=== PATIENT | male | born 1970 | race Caucasian/White ===

== ENCOUNTER 2020-06-26 00:28 | Outpatient (CLI) | payer OTHER, SELFPAY ==
[2020-06-26 18:58] LABS: SARS-CoV-2 RNA PCR Negative
== END 2020-06-26 00:29 | disposition home or self-care (01) ==
LOC: ANHCOVIDDT 00:28
PROVIDERS: PCP Family Medicine; Visit Provider Internal Medicine Gastroenterology
DX: Z01.812 Encounter for preprocedural laboratory examination (principal); Z20.828 Contact with and (suspected) exposure to other viral communicable diseases
CPT/HCPCS: 87635; C9803; U0003

== ENCOUNTER → 2020-06-29 08:04 | Day surgery (SDC) | payer OTHER, SELFPAY ==
[2020-06-23 11:00] VITALS: BMI 40.2
--- NOTE | 2020-06-28 09:49 | WPDANESEPPF ---
Anes - Initial Pre Proc Eval Procedure: Operation Date: 06/29/20 09:30 Proposed Procedures p Esophagogastroduodenoscopy & Screening Colonoscopy - Donnell Melgar MD Date/Time: 06/28/20 09:49 Surgeon: Donnell Melgar MD Pre Op Diagnosis: GERD, neoplasm screening Patient Data Age: 49 Gender: M Height: 1.93 m Weight: 150 kg Allergies Allergy/AdvReac Type Severity Reaction Status Date / Time No Known Allergies Allergy Verified 06/29/20 08:26 Home Medications Medication Instructions Recorded Confirmed Type cholecalciferol (vitamin D3) 50 50 mcg PO DAILY 07/28/19 06/23/20 History mcg (2,000 unit) capsule atorvastatin 10 mg tablet 10 mg PO DAILY #90 tablet 02/18/20 06/23/20 Rx cyclobenzaprine 10 mg tablet See Rx Instructions .ROUTE 05/12/20 06/23/20 Rx .COMPLEX #90 tablet omeprazole 20 mg capsule,delayed 20 mg PO DAILY #30 cap 06/29/20 Rx release diclofenac sodium 75 mg See Rx Instructions .ROUTE 06/30/20 Rx tablet,delayed release .COMPLEX #180 tablet lisinopril 10 mg tablet See Rx Instructions .ROUTE 07/05/20 Rx .COMPLEX #30 tablet tramadol 50 mg tablet 50 mg PO BID #60 tablet 07/05/20 Rx Patient hx anesthesia problems: none Family hx anesthesia problems: none PMFSH Past Medical History Medical History (Updated 04/19/20 @ 13:10 by Stacey Cottrell MD) Anxiety Benign prostatic disease Depression Encounter for screening colonoscopy Essential (primary) hypertension GERD (gastroesophageal reflux disease) History of hypertrophy of breast Hyperlipidemia Hyperlipidemia LDL goal <100 Hypertension Low back pain without sciatica Morbid obesity with BMI of 40.0-44.9, adult Unspecified osteoarthritis, unspecified site Vitamin D deficiency Surgical History Surgical History No pertinent past surgical history Family History Family History Other Family history of arthritis Family history of elevated blood lipids Hypertension Social History Social History Smoking packs per day: 1.5 Smoking cigarettes per day: 30.0 Years smoked: 15 Smoking pack-years: 22.50 Smoking status: Former smoker Tobacco type: cigarettes Second hand tobacco smoke exposure: No Smoking end date: 07/09/03 Alcohol intake: never Substance use: never Substance use type: does not use Spiritual care concerns: No Anes - Eval Final PreProcedure Day of Procedure 06/28/20 09:49 Patient weight: morbidly obese Heart: regular rate and rhythm Lungs: clear to auscultation and normal air movement Airway: Mallampati scale class II Neurological: alert and oriented Last oral intake: >/= 8 hours ASA classification: III Emergent: no Anesthetic plan: proceed Anesthesia type and monitoring: general GIVS and standard monitoring Informed Consent: The patient's anesthetic plan and its attendant risks and benefits were discussed with the patient/family/POA. Questions were solicited and answers provided to the satisfaction of the patient/family/POA.
[2020-06-29 08:28] VITALS: BP 147/96; PULSE 93; RESP 20; TEMP 36.5; O2SAT 96; BMI 42.5
[2020-06-29] MEDS: LACTATED RINGERS 1,000 ML 150 ML IV CONT (08:38)
--- NOTE | 2020-06-29 09:25 | PM.HPGS ---
History of Present Illness History of Present Illness Consent: Risks, benefits, and alternatives have been discussed and questions answered. Patient agrees to proceed with procedure. Chief complaint: GERD, neoplasm screening Narrative: Ernesto Roe is a 49 year old male with gerd occasionally using tums, also needs screening colonoscopy Review of Systems Constitutional: Constitutional: Denies headache(s) and Denies weakness Eyes: Eyes: Denies blurry vision ENT: Reports Normal hearing present, Denies headache(s) and Denies neck pain Cardiovascular: Cardiovascular: Denies chest pain and Denies dyspnea Respiratory: Respiratory: Denies dyspnea Gastrointestinal: Gastrointestinal: Reports no additional gastrointestinal complaints Genitourinary: Genitourinary: Denies dysuria Musculoskeletal: Musculoskeletal: Denies neck pain Integumentary/Breasts: Skin/Breast: Denies dry skin Neurologic: Reports Normal hearing present, Denies headache(s) and Denies weakness Psychiatric: Psychiatric: Denies anxiety Endocrine: Endocrine: Denies change in body appearance Hematologic/Lymphatic: Hematologic/Lymphatic: Denies easy bleeding Allergic/Immunologic: Allergic/Immunologic: Denies urticaria PMFSH Past Medical History Medical History (Updated 04/19/20 @ 13:10 by Stacey Cottrell MD) Anxiety Benign prostatic disease Depression Encounter for screening colonoscopy Essential (primary) hypertension GERD (gastroesophageal reflux disease) History of hypertrophy of breast Hyperlipidemia Hyperlipidemia LDL goal <100 Hypertension Low back pain without sciatica Morbid obesity with BMI of 40.0-44.9, adult Unspecified osteoarthritis, unspecified site Vitamin D deficiency Surgical History Surgical History No pertinent past surgical history Family History Family History Other Family history of arthritis Family history of elevated blood lipids Hypertension Social History Social History Smoking packs per day: 1.5 Smoking cigarettes per day: 30.0 Years smoked: 15 Smoking pack-years: 22.50 Smoking status: Former smoker Tobacco type: cigarettes Second hand tobacco smoke exposure: No Smoking end date: 07/09/03 Alcohol intake: never Substance use: never Substance use type: does not use Living arrangements: with family Spiritual care concerns: No Meds Home Medications and Allergies Home Medications Medication Instructions Recorded Confirmed Type cholecalciferol (vitamin D3) 50 50 mcg PO DAILY 07/28/19 06/23/20 History mcg (2,000 unit) capsule diclofenac sodium 75 mg See Rx Instructions .ROUTE 01/05/20 06/23/20 Rx tablet,delayed release .COMPLEX #180 tablet atorvastatin 10 mg tablet 10 mg PO DAILY #90 tablet 02/18/20 06/23/20 Rx lisinopril 10 mg tablet See Rx Instructions .ROUTE 03/19/20 06/23/20 Rx .COMPLEX #90 tablet cyclobenzaprine 10 mg tablet See Rx Instructions .ROUTE 05/12/20 06/23/20 Rx .COMPLEX #90 tablet Allergies Allergy/AdvReac Type Severity Reaction Status Date / Time No Known Allergies Allergy Verified 06/29/20 08:26 Vital Signs Vital Signs - 24 hr 06/29/20 08:28 Temperature 97.7 F Pulse Rate 93 Respiratory Rate 20 Blood Pressure 147/96 H Pulse Oximetry 96 Exam Const: General: comfortable and no acute distress HENMT: General nose exam: Normal nares present Eyes: General: appearance normal, both eyes and all related structures Neck: Neck: no JVD Resp: Auscultation: clear to auscultation bilaterally Cardio: Rate: regular rate Rhythm: regular rhythm GI: Inspection: non-distended GI Palp: Yes Soft to palpation Skin: General skin exam: normal color Neuro: General: gait normal Speech: normal speech Extrem: General: normal to inspection Psych: Mental Status
[2020-06-29 09:56] VITALS: BP 144/97; PULSE 89; RESP 16; O2SAT 98
[2020-06-29 10:06] VITALS: BP 136/95; PULSE 85; RESP 18; O2SAT 96
[2020-06-29 10:16] VITALS: BP 124/90; PULSE 74; RESP 20; O2SAT 98
== END ==
PROVIDERS: PCP Family Medicine; Visit Provider Internal Medicine Gastroenterology
PROC: 0DJ08ZZ Inspection of Upper Intestinal Tract, Via Natural or Artificial Opening Endoscopic (ICD-10-PCS; CPT 43235; principal; 2020-06-29 09:30)
DX: Z12.11 Encounter for screening for malignant neoplasm of colon (principal); K21.00 Gastro-esophageal reflux disease with esophagitis, without bleeding; K29.70 Gastritis, unspecified, without bleeding; K57.30 Diverticulosis of large intestine without perforation or abscess without bleeding; K64.8 Other hemorrhoids; F41.9 Anxiety disorder, unspecified; F32.9 Major depressive disorder, single episode, unspecified; I10 Essential (primary) hypertension; E78.5 Hyperlipidemia, unspecified; M19.90 Unspecified osteoarthritis, unspecified site; E55.9 Vitamin D deficiency, unspecified; E66.01 Morbid (severe) obesity due to excess calories; Z68.41 Body mass index [BMI] 40.0-44.9, adult; Z87.891 Personal history of nicotine dependence; N40.1 Benign prostatic hyperplasia with lower urinary tract symptoms
CPT/HCPCS: 43239; 45378; 87635; 88305; C9803; J2704; J7120; U0003

== ENCOUNTER 2021-02-20 07:46 | Outpatient (CLI) | payer OTHER, SELFPAY ==
--- NOTE | ~2021-02-20 | MR_ITS ---
EXAMINATION: MR cervical spine wo con DATE: 02/20/2021 08:56 INDICATION: Neck pain. TECHNIQUE: Magnetic resonance imaging (MRI) of the cervical spine was performed without intravenous c ontrast. Sequences included sagittal T2-weighted FSE, sagittal STIR FSE, sagittal T1-weighted FSE, ax ial MERGE, and axial T2-weighted FSE. COMPARISON: None FINDINGS: There is hypolordosis of cervical spine. There is 2 mm retrolisthesis of C4 on C5. There is a chronic compression fracture of C7 with 2/5 loss of height centrally. There is severely decreased disc height at C3-C4 and moderately decreased disc height at C4-C5. The spinal cord signal intensity is normal. The following disc levels are specifically discussed: C2-C3: The disc does not extend beyond the endplate margin. There is mild left uncovertebral joint os teoarthritis. There is severe right facet joint osteoarthritis. There is no neural foraminal stenosis . There is no central canal stenosis. C3-C4: The disc is bulging. There is severe bilateral uncovertebral joint osteoarthritis. There is mi ld bilateral facet joint osteoarthritis. There is moderate bilateral neural foraminal stenosis. There is mild central canal stenosis. C4-C5: The disc is bulging. There is severe bilateral uncovertebral joint osteoarthritis. There is mi ld bilateral facet joint osteoarthritis. There is moderate bilateral neural foraminal stenosis. There is moderate central canal stenosis with ventral and dorsal indentation of the spinal cord. C5-C6: The disc does not extend beyond the endplate margin. There is moderate and mild left uncoverte bral joint osteoarthritis. There is mild bilateral facet joint osteoarthritis. There is mild bilatera l neural foraminal stenosis. There is no central canal stenosis. C6-C7: The disc does not extend beyond the endplate margin. There is mild right and moderate left unc overtebral joint osteoarthritis. There is mild bilateral facet joint osteoarthritis. There is mild bi lateral neural foraminal stenosis. There is mild central canal stenosis with ventral indentation of t he spinal cord. C7-T1: The disc does not extend beyond the endplate margin. There is no uncovertebral joint osteoarth ritis. There is mild bilateral facet joint osteoarthritis. There is mild bilateral neural foraminal s tenosis. There is no central canal stenosis. IMPRESSION: 1. Severe cervical spondylosis. Reviewed, dictated and finalized at location B.
--- NOTE | ~2021-02-20 | MR_ITS ---
EXAMINATION: MR lumbar spine wo con DATE: 02/20/2021 08:56 INDICATION: Low back pain. TECHNIQUE: Magnetic resonance imaging (MRI) of the lumbar spine was performed without intravenous con trast. Sequences included sagittal T2-weighted FSE, sagittal T2-weighted FS FSE, sagittal T1-weighted FSE, and axial T2-weighted FSE. COMPARISON: Lumbar spine radiographs 11/23/2010, chest 2 views 06/07/2011 FINDINGS: There is 6 degrees levocurvature of lumbar spine. There are 12 pairs of ribs. S1 is a trans itional segment. There is 3 mm retrolisthesis of L2 on L3 and 3 mm anterolisthesis of L5 on S1. There is mild chronic anterior wedging of T12 and L1 vertebral bodies. There are Schmorl's nodes at most l evels. There is mildly decreased disc height at L4-L5. The distal spinal cord signal intensity is nor mal. The conus medullaris is at L2. The following disc levels are specifically discussed: L1-L2: The disc does not extend beyond the endplate margin. There is mild bilateral facet joint osteo arthritis. There is no neural foraminal stenosis. There is no central canal stenosis. L2-L3: The disc does not extend beyond the endplate margin. There is moderate bilateral facet joint o steoarthritis. There is mild bilateral neural foraminal stenosis. There is no central canal stenosis. L3-L4: The disc does not extend beyond the endplate margin. There is severe right and moderate left f acet joint osteoarthritis. There is mild bilateral neural foraminal stenosis. There is no central can al stenosis. L4-L5: The disc is bulging and has an annular fissure. There is severe bilateral facet joint osteoart hritis. There is moderate bilateral neural foraminal stenosis. There is mild central canal stenosis. L5-S1: The disc does not extend beyond the endplate margin. There is severe bilateral facet joint ost eoarthritis. There is mild bilateral neural foraminal stenosis. There is no central canal stenosis. IMPRESSION: 1. Moderate lumbar spondylosis. Reviewed, dictated and finalized at location B.
== END 2021-02-20 07:47 | disposition home or self-care (01) ==
LOC: ANHIMG 07:47
PROVIDERS: PCP Family Medicine; Visit Provider Internal Medicine Rheumatology
DX: M47.892 Other spondylosis, cervical region (principal); M47.896 Other spondylosis, lumbar region
CPT/HCPCS: 72141; 72148

== ENCOUNTER 2021-11-26 23:41 | Emergency (ER) | payer BC, SELFPAY ==
--- NOTE | ~2021-11-26 | XR_ITS ---
EXAMINATION: XR shoulder RT min 2V DATE: 11/27/2021 00:53 INDICATION: Fall with diffuse right shoulder pain TECHNIQUE: AP internally and externally rotated, AP oblique externally rotated and transscapular Y vi ews of the right shoulder were obtained. COMPARISON: None FINDINGS: 1 part fracture of the proximal right humerus with an oblique fracture extending from the anterior as pect of the surgical neck posterior and cephalad to involve the posterior facet of the greater tubero sity. There is mild anteromedial impaction with minimal anteromedial angulation and a maximum of 7 mm displacement at the posterior margin of the fracture. Fracture appears mildly comminuted with additi onal small fracture fragment along the anteromedial margin of the fracture. No other fractures identi fied. Mild osteoarthritis of the acromioclavicular joint. There is widening of the cephalad aspect of the glenohumeral joint consistent with the presence of a joint effusion. Soft tissues are unremarkab le. Visualized portions of the right lung are clear. IMPRESSION: 1 part fracture of the proximal right humerus. Reviewed, dictated and finalized at location A.
[2021-11-26 23:44] VITALS: BP 174/97; PULSE 97; RESP 20; TEMP 36.4; O2SAT 96
--- NOTE | 2021-11-27 00:22 | ED.UPPEXIN ---
HPI - Extremity Injury (Upper) General Chief Complaint: Extremity Injury, Upper Stated Complaint: Fall, right arm/shoulder pain Time Seen by Provider: 11/26/21 23:55 Source: patient History of Present Illness HPI narrative: Patient presents with right shoulder pain. He had some reckons in his hand house he was chasing them away when he slipped on the ground and landed on his right shoulder demonstrated generalized loss of consciousness denies use of any blood thinners. And any focal numbness or is. Reports pain to his right shoulder, constant, worse with attempting to move around, no radiation. Reports he has a difficult time moving his right shoulder due to pain. He denied prodrome prior to the fall such as chest pain, lightheadedness, dizziness Related Data Home Medications Medication Instructions Recorded Confirmed cholecalciferol (vitamin D3) 50 50 mcg PO DAILY 07/28/19 08/04/21 mcg (2,000 unit) capsule Allergies Allergy/AdvReac Type Severity Reaction Status Date / Time No Known Allergies Allergy Verified 11/26/21 23:49 Review of Systems Review of Systems: CONSTITUTIONAL: Denies fever, chills, or sweats. EYES: Denies visual changes, redness, or discharge. ENT: Denies rhinorrhea, congestion, sore throat, or otalgia. CARDIOVASCULAR: Denies chest pain, palpitations, or edema. RESPIRATORY: Denies cough or dyspnea. GASTROINTESTINAL: Denies abdominal pain, nausea, vomiting, or diarrhea. GENITOURINARY: Denies dysuria or hematuria. SKIN: Denies rash or itching. MUSCULOSKELETAL: Denies back pain, or myalgia. NEUROLOGIC: Denies headache, numbness, dizziness, or weakness. PSYCHIATRIC: Denies anxiety or depression. All systems reviewed & are unremarkable except as noted in HPI and below PMFSH Past Medical History Medical History Anxiety Benign prostatic disease Depression Essential (primary) hypertension GERD (gastroesophageal reflux disease) History of hypertrophy of breast Hyperlipidemia Hyperlipidemia LDL goal <100 Low back pain without sciatica Morbid obesity with BMI of 40.0-44.9, adult Unspecified osteoarthritis, unspecified site Vitamin D deficiency Surgical History Surgical History No pertinent past surgical history Family History Family History Other Family history of arthritis Family history of elevated blood lipids Hypertension Social History Social History Smoking packs per day: 1.5 Smoking cigarettes per day: 30.0 Years smoked: 15 Smoking pack-years: 22.50 Smoking status: Former smoker Tobacco type: cigarettes Second hand tobacco smoke exposure: No Smoking end date: 07/09/03 Alcohol intake: never Alcohol use details: no alcohol consumed since 2008 Substance use: never Substance use type: does not use Spiritual care concerns: No Exam Narrative: GENERAL: Well-appearing, well-nourished, and in no acute distress. HEAD: Normocephalic, atraumatic. EYES: PERRLA and EOMI. ENT: Nares clear, no rhinorrhea or epistaxis. Mucous membranes moist. NECK: Supple. No masses. No JVD EXTREMITIES: Diffuse tenderness to the right shoulder no obvious deformity no open or draining wounds dissociatively neurovascularly intact SKIN: Warm, dry, no rash. NEURO: No focal deficits. Alert and oriented x3. PSYCH: Normal mood and affect. Course Reevaluation(s) Reevaluation #1: Case cussed with Ortho on-call due to the complex of the fracture recommended outpatient evaluation at tertiary care clinic. Patient preferred to [facility] he is given contact information for orthopedic surgical clinic instructed to call and follow-up with them. Date: 11/27/21 Time: 01:42 Vital Signs Vital signs: Vital Signs Temperature 36.4 C 11/26/21 23:44 Pulse Rate 97 05
[2021-11-27 01:29] VITALS: PULSE 101; RESP 18; O2SAT 95
[2021-11-27] MEDS: oxyCODONE/ACETAMINOPHEN (*CRX) 5-325 MG TABLET 1 TABLET PO (01:39)
[2021-11-27 01:54] VITALS: BP 160/109; PULSE 95; RESP 18; O2SAT 97
== END 2021-11-27 01:55 | disposition home or self-care (01) ==
PROVIDERS: Emergency Provider Emergency Medicine; PCP Family Medicine
DX: S42.211A Unspecified displaced fracture of surgical neck of right humerus, initial encounter for closed fracture (principal); N40.0 Benign prostatic hyperplasia without lower urinary tract symptoms; I10 Essential (primary) hypertension; E78.5 Hyperlipidemia, unspecified; K21.9 Gastro-esophageal reflux disease without esophagitis; M19.90 Unspecified osteoarthritis, unspecified site; E66.01 Morbid (severe) obesity due to excess calories; E55.9 Vitamin D deficiency, unspecified; Z87.891 Personal history of nicotine dependence; F41.9 Anxiety disorder, unspecified; F32.A Depression, unspecified; W01.0XXA Fall on same level from slipping, tripping and stumbling without subsequent striking against object, initial encounter
CPT/HCPCS: 73030; 99283; 99284; A4565; A9270

== ENCOUNTER 2022-07-31 09:49 | Outpatient (CLI) | payer BC, SELFPAY ==
--- NOTE | ~2022-07-31 | US_ITS ---
Testicular ultrasound with doppler. Indication: Pain. Technique: Real-time sonography the scrotum was performed. Color flow Doppler and Doppler spectral an alysis were performed. Findings: The testes are homogeneous in echotexture bilaterally. There is no evidence of an intrates ticular mass. The right testis measures 5.1 x 3.1 x 3.2 cm and the left 3.5 x 3.8 x 3.6 cm. There is color-flow seen to both testes. Arterial and venous spectral waveforms are seen in both testes. There is no sonographic evidence of torsion. Tiny left epididymal head cysts are noted. Impression: No testicular mass or torsion. Tiny left epididymal cysts. Reviewed, dictated and finalized at [facility]. D SERVICE COORDINATOR Impression: No testicular mass or torsion. Tiny left epididymal cysts.
== END 2022-07-31 09:50 ==
LOC: MICIMG 09:50
PROVIDERS: PCP Family Medicine; Visit Provider Nurse Practitioner Adult Health
DX: N50.811 Right testicular pain (principal); N50.812 Left testicular pain
CPT/HCPCS: 76870; 93976

== ENCOUNTER 2025-02-27 08:55 | Outpatient (CLI) | payer BC, SELFPAY ==
[2025-02-27 13:50] LABS: Alanine Aminotransferase 44 U/L (6-50); Albumin Level 4.4 g/dL (3.5-5.1); Alkaline Phosphatase 69 U/L (38-126); Anion Gap 8 mmol/L (4-12); Aspartate Amino Transferase 107 U/L (17-59); Bilirubin,Total 0.7 mg/dL (0.2-1.3); Blood Urea Nitrogen 21 mg/dL (9-20); Calcium 9.2 mg/dL (8.4-10.2); Carbon Dioxide 25 mmol/L (22-30); Chloride 104 mmol/L (98-107); Estimated Glomerular Filt Rate > 60; Glucose 81 mg/dL (65-110); Potassium 4.6 mmol/L (3.4-5.0); Sodium 137 mmol/L (137-145); Total Protein 7.2 g/dL (6.3-8.2)
== END 2025-02-27 08:56 | disposition home or self-care (01) ==
LOC: ANHGOSHLAB 08:56
PROVIDERS: PCP Family Medicine; Visit Provider Nurse Practitioner Family
DX: R68.2 Dry mouth, unspecified (principal); I10 Essential (primary) hypertension; Z79.899 Other long term (current) drug therapy
CPT/HCPCS: 36415; 80053; 86235

== ENCOUNTER 2025-03-16 12:41 | Outpatient (CLI) | payer BC, SELFPAY ==
[2025-03-16 18:43] LABS: Alanine Aminotransferase 42 U/L (6-50); Albumin Level 4.3 g/dL (3.5-5.1); Alkaline Phosphatase 73 U/L (38-126); Anion Gap 10 mmol/L (4-12); Aspartate Amino Transferase 75 U/L (17-59); Bilirubin,Total 0.5 mg/dL (0.2-1.3); Blood Urea Nitrogen 22 mg/dL (9-20); Calcium 9.6 mg/dL (8.4-10.2); Carbon Dioxide 26 mmol/L (22-30); Chloride 101 mmol/L (98-107); Estimated Glomerular Filt Rate > 60; Glucose 90 mg/dL (65-110); Potassium 4.1 mmol/L (3.4-5.0); Sodium 137 mmol/L (137-145); Total Protein 7.3 g/dL (6.3-8.2)
[2025-03-16 19:35] LABS: Thyroid Stimulating Hormone Reflex 0.539 uIU/mL (0.465-4.68)
== END 2025-03-16 12:42 | disposition home or self-care (01) ==
PROVIDERS: PCP Family Medicine; Visit Provider Nurse Practitioner Family
DX: R74.01 Elevation of levels of liver transaminase levels (principal); I10 Essential (primary) hypertension; Z79.899 Other long term (current) drug therapy
CPT/HCPCS: 36415; 80053; 84443

== ENCOUNTER 2025-06-29 08:39 | Outpatient (CLI) | payer BC, SELFPAY ==
[2025-06-29 13:58] LABS: Hematocrit 52.2 % (42.0-52.0); Hemoglobin 17.4 g/dL (14.0-18.0); Immature Granulocyte Percent A 0.3 % (0-0.5); Lymphocytes Absolute Auto 2.35 K/mm3 (0.9-3.2); Mean Corpuscular HGB Conc 33.3 g/dl (32-36); Mean Corpuscular Hemoglobin 31.2 pg (26-34); Mean Corpuscular Volume 93.5 fl (80-100); Nucleated Red Blood Cells Absolute Auto 0.000 K/mm3 (0.0-0.012); Nucleated Red Blood Cells Perc 0.0 % (0.0-0.2); Platelet Count Result 218 k/mm3 (150-375); Red Blood Count 5.58 M/mm3 (4.6-6.20); White Blood Count 6.4 K/mm3 (4.5-10.0)
[2025-06-29 14:10] LABS: Alanine Aminotransferase 46 U/L (6-50); Albumin Level 4.4 g/dL (3.5-5.1); Alkaline Phosphatase 68 U/L (38-126); Anion Gap 8 mmol/L (4-12); Aspartate Amino Transferase 112 U/L (17-59); Bilirubin,Total 0.7 mg/dL (0.2-1.3); Blood Urea Nitrogen 18 mg/dL (9-20); Calcium 9.5 mg/dL (8.4-10.2); Carbon Dioxide 25 mmol/L (22-30); Chloride 105 mmol/L (98-107); Cholesterol 128 mg/dL (0-200); Estimated Glomerular Filt Rate > 60; Glucose 91 mg/dL (65-110); HDL Direct 50 mg/dL; Magnesium 2.1 mg/dL (1.6-2.3); Potassium 4.3 mmol/L (3.4-5.0); Sodium 138 mmol/L (137-145); Total Protein 7.4 g/dL (6.3-8.2); Triglycerides 47 mg/dL (<150)
[2025-06-29 14:37] LABS: Hemoglobin A1C 5.3 % (<5.7)
[2025-06-29 14:45] LABS: Thyroid Stimulating Hormone Reflex 0.662 uIU/mL (0.465-4.68)
[2025-06-29 14:47] LABS: Prostate Specific Antigen 1.6 ng/mL (< OR = 4.0)
[2025-06-29 15:06] LABS: Vitamin B12 623.0 pg/mL (239-931)
== END 2025-06-29 08:40 | disposition home or self-care (01) ==
PROVIDERS: PCP Family Medicine; Visit Provider Nurse Practitioner Family
DX: R73.9 Hyperglycemia, unspecified (principal); E78.5 Hyperlipidemia, unspecified; I10 Essential (primary) hypertension; Z12.5 Encounter for screening for malignant neoplasm of prostate; F41.9 Anxiety disorder, unspecified; E55.9 Vitamin D deficiency, unspecified
CPT/HCPCS: 36415; 80053; 80061; 82306; 82607; 83036; 83735; 84153; 84443; 85025; G0103